=== PATIENT | male | born 1955 | race Caucasian/White ===

== ENCOUNTER 2024-06-30 10:06 | Outpatient (CLI) | payer OTHER, MEDICARE, SELFPAY ==
--- NOTE | 2024-06-30 10:14 | XR_ITS ---
WS: [id number] Exam: XR chest 2V* [id number] Date/Time of Exam: 06/30/2024 10:19 AM Reason For Exam: ACUTE COUGH No priors. Lungs are hyperinflated and clear. Normal cardiomediastinal silhouette. Bony structures are intact. M ild spondylosis of the T-spine. XR/XR chest 2V* [id number] IMPRESSION: 1. Pulmonary hyperinflation. No acute process.
== END 2024-06-30 10:07 | disposition home or self-care (01) ==
LOC: RAD 10:09
PROVIDERS: Visit Provider Family Medicine
DX: R05.1 Acute cough (principal)
CPT/HCPCS: 71046

== ENCOUNTER 2024-07-07 08:46 | Outpatient (CLI) | payer MEDICARE, SELFPAY ==
--- NOTE | 2024-07-07 08:50 | CT_ITS ---
WS: [id number] LDCT LUNG CANCER SCREENING HISTORY: NICOTINE DEPENDENCE,CIGARETTES TECHNIQUE: Axial imaging performed from the apices to 1 cm below the costophrenic angles. Coronal and sagittal reformats are submitted with axial MIP series. All CT scans at [facility] use at least one of these dose optimization techniques: automated exposure control; mA and/or kV adjustment per patient size (includes targeted exams where dose is matched to clinical indication); or iterativ e reconstruction. DLP: 67.88 mGy.cm DIvol: Mean CTDIvol: 1.20 (mGy) COMPARISON: None available. Diagnostic quality: Satisfactory Lungs: Mild pulmonary hyperexpansion from emphysema. Subpleural 3 mm nodule RIGHT lower lobe. No mass . No endobronchial lesions. Heart: Normal size heart with no pericardial effusion.. Other findings: Minimal plaque thoracic aorta. Normal size pulmonary artery. No adrenal mass. Splenic granulomata. Well-circumscribed anterior, superior chest wall mass measures 3.0 x 1.8 cm. Due to its appearance this is probably a sebaceous cyst. There is no adjacent inflammation. CT/CT lung screening [id number] IMPRESSION: LUNG-RADS: 2-Benign Appearance or Behavior FOLLOW UP: 12 Month: Continue annual screening with LDCT OTHER FINDINGS (S MODIFIER): None.
== END 2024-07-07 08:47 | disposition home or self-care (01) ==
LOC: RAD 08:47
PROVIDERS: Visit Provider Nurse Practitioner Family
DX: Z12.2 Encounter for screening for malignant neoplasm of respiratory organs (principal); F17.210 Nicotine dependence, cigarettes, uncomplicated; R91.1 Solitary pulmonary nodule; D73.89 Other diseases of spleen; R93.89 Abnormal findings on diagnostic imaging of other specified body structures
CPT/HCPCS: 71271

== ENCOUNTER → 2024-08-02 13:38 | Outpatient (BNVA) | payer MEDICARE, SELFPAY | PROVIDERS: Referring Provider Nurse Practitioner Family; Visit Provider Surgery | DX: Z12.11 Encounter for screening for malignant neoplasm of colon (principal) | CPT/HCPCS: 99024; 99203; 99204 ==

== ENCOUNTER 2024-08-08 13:40 | Outpatient (CLI) | payer MEDICARE, SELFPAY ==
[2024-08-08 14:05] VITALS: PULSE 67; RESP 18; O2SAT 98
[2024-08-08 14:09] VITALS: PULSE 73
[2024-08-08] MEDS: albuterol 2.5 mg/3 mL Neb INHALATION (14:16)
== END 2024-08-08 13:41 | disposition home or self-care (01) ==
PROVIDERS: Visit Provider Family Medicine
DX: J43.9 Emphysema, unspecified (principal)
CPT/HCPCS: 94060; 94729; J7613

== ENCOUNTER 2024-08-24 09:45 | Day surgery (SDC) | payer MEDICARE, SELFPAY ==
[2024-08-24 09:55] VITALS: BP 141/91; PULSE 71; RESP 16; TEMP 36.4; O2SAT 95; BMI 24.3
[2024-08-24] MEDS: sodium chloride 0.9% 1,000 ML 30 ML IV (10:04)
--- NOTE | 2024-08-24 10:11 | W.PM.OPSUD ---
Surgery/Procedure H&P Update DATE OF PROCEDURE: August 24, 2024 DATE H&P PERFORMED: 08/02/24 H&P UPDATE INFORMATION: I have reviewed H&P completed within last 30 days, I have examined patient prior to procedure, No changes to prior documentation and H&P is in [facility] EMR on date indicated PLANNED PROCEDURE: Operation Date: 08/24/24 11:00 Proposed Procedures p Colonoscopy 46926, G0105, Z12.11(Not Applicable) - Oz Ramey MD
--- NOTE | 2024-08-24 10:23 | ANES.PREANE2 ---
Pre-Anesthetic Assessment Height/Weight: Height 1.78 m Weight 77.111 kg Temp Pulse Resp BP Pulse Ox O2 Del Method 97.5 F L 71 16 141/91 95 Room Air 08/24/24 09:55 08/24/24 09:55 08/24/24 09:55 08/24/24 09:55 08/24/24 09:55 08/24/24 09:55 Operation Date: 08/24/24 11:00 Proposed Procedures p Colonoscopy 29040, G0105, Z12.11(Not Applicable) - Oz Ramey MD Familial anesthetic complications: None Was Beta Carlo taken within 24 hours: N/A Was Clonidine taken within 24 hours: N/A Last intake: Intake Last Liquid Date 08/23/24 Last Liquid Time 23:15 Last Solid Date 08/22/24 Last Solid Time 21:30 Social Tobacco and No alcohol Exam alert, oriented x 3, clear to auscultation bilaterally and regular rate & rhythm Airway Mallampati: Class I Dentition: false CV/HEM Hypertension Anesthetic Plan ASA status: 2 Anesthesia: MAC Other Pertinent Information Patient having increased sinus drainage over past couple of days Medications/Allergies Home Medications Medication Instructions Recorded Confirmed Last Taken Type benazepril 10 mg tablet 10 mg PO DAILY 08/02/24 08/24/24 08/23/24 History Allergies Allergy/AdvReac Type Severity Reaction Status Date / Time No Known Allergies Allergy Verified 08/02/24 13:48 Current Medications Generic Name Dose Route Start Last Admin Trade Name Freq PRN Reason Stop Dose Admin Sodium Chloride 1,000 mls @ 30 mls/hr 08/24/24 10:00 08/24/24 10:04 Sodium Chloride 0.9% IV 30 mls/hr .Q24H ADA Administration PFSH Anesthesia Social History Smoking and tobacco/nicotine status: current every day tobacco/nicotine user Data Anesthesia Cardiac Studies: No Data to Display
[2024-08-24 11:14] VITALS: BP 104/67; PULSE 65; RESP 18; TEMP 36.1; O2SAT 96
[2024-08-24 11:20] VITALS: BP 104/63; PULSE 69; RESP 18; O2SAT 95
[2024-08-24 11:30] VITALS: BP 116/74; PULSE 67; RESP 18; O2SAT 95
--- NOTE | 2024-08-24 11:46 | ANE.PACU2 ---
Inpatient post-anesthesia follow up: Airway intact: Yes Vital signs: Temperature 97.0 F Pulse Rate 67 Respiratory Rate 18 Blood Pressure 116/74 Pulse Oximetry 95 Oxygen Delivery Me thod Room Air Oxygen Flow Rate Fraction of Inspir ed Oxygen Hydration adequate: Yes Nausea and vomiting: No Pain level: 1 Mental status: Baseline
== END 2024-08-24 11:50 | disposition home or self-care (01) ==
PROVIDERS: PCP Family Medicine; Visit Provider Surgery
PROC: 0DJD8ZZ Inspection of Lower Intestinal Tract, Via Natural or Artificial Opening Endoscopic (ICD-10-PCS; CPT 45378; principal; 2024-08-24 11:00)
DX: Z12.11 Encounter for screening for malignant neoplasm of colon (principal); K64.8 Other hemorrhoids; K63.5 Polyp of colon; I10 Essential (primary) hypertension; F17.200 Nicotine dependence, unspecified, uncomplicated
CPT/HCPCS: 45380; 88305; J2704; J7030

== ENCOUNTER → 2024-09-05 13:23 | Outpatient (BNVA) | payer MEDICARE, SELFPAY | PROVIDERS: PCP Family Medicine; Visit Provider Surgery | DX: Z09 Encounter for follow-up examination after completed treatment for conditions other than malignant neoplasm (principal) | CPT/HCPCS: 99213 ==

== ENCOUNTER → 2024-11-15 13:08 | Outpatient (BNVA) | payer MEDICARE, SELFPAY | PROVIDERS: PCP Family Medicine; Visit Provider Surgery | DX: R22.2 Localized swelling, mass and lump, trunk (principal) | CPT/HCPCS: 99214 ==

== ENCOUNTER 2024-11-20 05:50 | Day surgery (SDC) | payer MEDICARE, SELFPAY ==
[2024-11-20] VITALS (10 sets, daily range): BP systolic 118–138; BP diastolic 67–89; PULSE 72–77; RESP 12–18; TEMP 36.1–36.2; O2SAT 94–96; BMI 25.1
--- NOTE | 2024-11-20 05:53 | ECG_ITS ---
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: : 1955 Requested By: Raul Negro Order Number: [id number] Reading MD: FUENTES HI Measurements Intervals [place] Rate: 74 P: 12 TX: 141 QRS: -80 QRSD: 108 T: 100 QT: 399 QTc: 443 Interpretive Statements SINUS RHYTHM PATTERN CONSISTENT WITH PULMONARY DISEASE LEFT ANTERIOR FASCICULAR BLOCK [QRS AXIS <= -45, QR IN I, RS IN II] ST DEVIATION AND MODERATE T-WAVE ABNORMALITY, CONSIDER LATERAL ISCHEMIA [-0.1+ mV T-WAVE IN I/aVL/V5/V6] No previous ECG available for comparison Electronically Signed On 11-20-2024 23:20:44 RN HYPERBARIC by FUENTES HI [email or web address]
--- NOTE | 2024-11-20 06:16 | W.PM.OPSUD ---
Surgery/Procedure H&P Update DATE OF PROCEDURE: November 20, 2024 DATE H&P PERFORMED: 08/02/24 H&P UPDATE INFORMATION: I have reviewed H&P completed within last 30 days, I have examined patient prior to procedure, No changes to prior documentation, Changes to prior documentation as noted here and H&P is in [facility] EMR on date indicated CHANGES TO PREVIOUS DOCUMENTATION: Excision of left upper chest mass PREOP DIAGNOSIS: Mass of the left upper chest PLANNED PROCEDURE: Operation Date: 11/20/24 07:00 Proposed Procedures p EXICISION OF CHEST WALL MASS 01399, R22.2(Not Applicable) - Oz Ramey MD
[2024-11-20] MEDS: sodium chloride 0.9% 1,000 ML 30 ML IV (06:26)
--- NOTE | 2024-11-20 06:28 | ANES.PREANE2 ---
Pre-Anesthetic Assessment Height/Weight: Height 5 ft 10 in Weight 175 lb Temp Pulse Resp BP Pulse Ox O2 Del Method 97.1 F L 77 18 118/76 95 Room Air 11/20/24 06:01 11/20/24 06:01 11/20/24 06:01 11/20/24 06:01 11/20/24 06:01 11/20/24 06:05 Preop Diagnosis: Mass of the left upper chest Operation Date: 11/20/24 07:00 Proposed Procedures p EXICISION OF CHEST WALL MASS 01973, R22.2(Not Applicable) - Oz Ramey MD Was Beta Carlo taken within 24 hours: N/A Was Clonidine taken within 24 hours: N/A Last intake: Intake Last Liquid Date 11/19/24 Last Liquid Time 22:30 Last Solid Date 11/19/24 Last Solid Time 20:00 Social Tobacco and No alcohol Exam alert, oriented x 3, clear to auscultation bilaterally and regular rate & rhythm Airway Submandibular: within normal limits Cervical ROM: within normal limits Mallampati: Class II Dentition: false Anesthetic Plan ASA status: 3 Anesthesia: General Other: No prior issues with anesthesia NPO since yesterday Recently had a upper respiratory infection, completed Z-Harley. Currently asymptomatic History of smoking Hypertension on benazepril Patient received lab work outpatient which was WNL EKG performed today showing sinus rhythm with a LAFB, mild T wave abnormality. Patient is currently asymptomatic, denies any SOB or chest pain METs greater than 4 Plan for general anesthesia(LMA) with local via surgeon Medications/Allergies Home Medications Medication Instructions Recorded Confirmed Last Taken Type benazepril 10 mg tablet 10 mg PO DAILY 08/02/24 11/17/24 11/19/24 History albuterol sulfate 90 mcg/actuation 1 puff inhalation PRN PRN sob 11/15/24 11/17/24 11/19/24 History aerosol inhaler fluticasone propionate 50 1 spray intranasal DAILY 11/15/24 11/17/24 Unknown History mcg/actuation nasal spray,suspension loratadine 10 mg tablet 10 mg PO ONCE 11/15/24 11/17/24 11/19/24 History itagveo-zzpuxlhfdteop-gwjtmztr 250 1 tab PO PRN 11/17/24 11/17/24 Unknown History mg-250 mg-65 mg tablet (Excedrin Migraine) garlic 1 tab PO DAILY 11/17/24 11/17/24 11/19/24 History Allergies Allergy/AdvReac Type Severity Reaction Status Date / Time No Known Allergies Allergy Verified 11/15/24 13:11 Current Medications Generic Name Dose Route Start Last Admin Trade Name Freq PRN Reason Stop Dose Admin Sodium Chloride 1,000 mls @ 30 mls/hr 11/20/24 06:00 11/20/24 06:26 Sodium Chloride 0.9% IV 11/21/24 05:59 30 mls/hr .Q24H ADA Administration PFSH Anesthesia Family History (Updated 11/15/24 @ 13:17 by KT Wick) Father Hypertension Mother Hypertension Social History Smoking and tobacco/nicotine status: current every day tobacco/nicotine user Data Anesthesia Cardiac Studies: No Data to Display
[2024-11-20] MEDS: ceFAZolin 2,000 mg SDV 2000 MG IVP (06:59)
[2024-11-20] MEDS: lidocaine-epi 1% 20 mL INJ 10 ML INJECTION (07:27)
[2024-11-20] MEDS: BUPivacaine 0.25% INJ 10 mL INJECTION (07:28)
--- NOTE | 2024-11-20 07:54 | P.OP_ITS ---
Operative Report Date of procedure: November 20, 2024 Pre-op diagnosis: Left upper chest mass Post-op diagnosis: Same Post-op findings: There was a 4 x 2 x 3 cm left upper chest subcutaneous lesion. 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 After discussion of all recent benefits documented my preop note we decided to proceed with excision of left upper chest mass. Procedure: Patient was brought into the OR, he was placed in the supine position. Moderate analgesia and LMA was placed. The left upper chest was prepped and draped in the usual sterile fashion. A timeout was conducted. Mass was noted on the left upper chest, it was marked. Local anesthesia was infiltrated. I then made a 4 x 1 cm elliptical incision overlying the mass. The incision was deepened until the capsule of the mass was identified. I then carefully circumferentially dissected the lesion from the surrounding tissue using a 15 blade. I was able to completely liberate the mass from the surrounding tissue without perforating the capsule. The mass measured about 4 x 3 x 2 cm, was excised and sent to pathology. Hemostasis was obtained. Additional local anesthesia was infiltrated below the fascial level. The wound was irrigated and hemostasis was verified. The wound was closed in layers using #3-0 Vicryl for the subcutaneous tissue #4 Monocryl for the skin. Dermabond was applied. At the end of the procedure all counts were correct, the patient tolerated well the procedure was transferred to the PACU in stable condition.
--- NOTE | 2024-11-20 09:05 | ANE.PACU2 ---
Inpatient post-anesthesia follow up: Airway intact: Yes Vital signs: Temperature 97 F Pulse Rate 74 Respiratory Rate 18 Blood Pressure 128/81 Pulse Oximetry 96 Oxygen Delivery Me thod Room Air Oxygen Flow Rate 6 Fraction of Inspir ed Oxygen Hydration adequate: Yes Nausea and vomiting: No Pain level: 1 Mental status: Baseline
== END 2024-11-20 09:05 | disposition home or self-care (01) ==
PROVIDERS: PCP Family Medicine; Visit Provider Surgery
PROC: (CPT 11404; principal; 2024-11-20 07:00)
DX: L72.0 Epidermal cyst (principal); I10 Essential (primary) hypertension; F17.200 Nicotine dependence, unspecified, uncomplicated
CPT/HCPCS: 11404; 12032; 88307; 93005; J0690; J2704; J3010; J3490; J7030

== ENCOUNTER 2024-11-28 14:45 | Outpatient (CLI) | payer MEDICARE, SELFPAY ==
--- NOTE | 2024-11-28 14:49 | XR_ITS ---
WS: [id number] Exam: XR chest 2V* [id number] Date/Time of Exam: 11/28/2024 2:57 PM Reason For Exam: ACUTE COUGH Comparison 06/30/2024. The lungs are hyperinflated and clear. Normal cardiomediastinal silhouette. No pleural effusion. Unre markable bony structures. XR/XR chest 2V* [id number] IMPRESSION: 1. Pulmonary hyperinflation that might represent obstructive lung disease. No a cute process.
== END 2024-11-28 14:46 | disposition home or self-care (01) ==
LOC: RAD 14:47
PROVIDERS: PCP Family Medicine; Visit Provider Family Medicine
DX: R05.1 Acute cough (principal); R91.8 Other nonspecific abnormal finding of lung field
CPT/HCPCS: 71046

== ENCOUNTER → 2024-12-06 13:09 | Outpatient (BNVA) | payer MEDICARE, SELFPAY | PROVIDERS: PCP Family Medicine; Visit Provider Surgery | DX: R22.2 Localized swelling, mass and lump, trunk (principal); Z98.890 Other specified postprocedural states | CPT/HCPCS: 99024 ==

== ENCOUNTER 2025-08-07 10:18 | Outpatient (CLI) | payer MEDICARE, SELFPAY ==
--- NOTE | 2025-08-07 10:25 | CT_ITS ---
WS: [id number] LDCT LUNG CANCER SCREENING TECHNIQUE: Noncontrast CT of the chest with coronal and sagittal reformatted images. CLINICAL INFORMATION: NICOTINE DEPENDENCE,CIGARETTES COMPARISON: CT screening 07/07/2024 DLP: 60.51 mGy.cm DIvol: Mean CTDIvol: 1.20 (mGy) All CT scans at [facility] use at least one of these dose optimization techniques: automated exposure control; mA and/or kV adjustment per patient size (includes targeted exams where dose is matched to clinical indication); or iterative reconstruction. FINDINGS: Hyperinflation. Chronic emphysematous change. Stable 3 mm subpleural nodule RIGHT lower lobe. Small RIGHT perifissural nodule. Additional 3 mm subpleural nodule RIGHT lower lobe. 3 mm nodule RIGHT upper lobe. A few scattered micronodules bilaterally. No new suspicious pulmonary parenchymal abnormalities. Aortic calcification. Splenic granulomas. Coronary calcification. No mediastinal or hilar lymphadenopathy. Calcified RIGHT hilar lymph nodes. No axillary lymphadenopathy. Adrenal glands are normal. Normal GE junction. CT/CT lung screening [id number] IMPRESSION: LUNG-RADS: 2-Benign Appearance or Behavior FOLLOW UP: 12 Month: Continue annual screening with LDCT
== END 2025-08-07 10:19 | disposition home or self-care (01) ==
LOC: RAD 10:21
PROVIDERS: PCP Family Medicine; Visit Provider Family Medicine
DX: Z12.2 Encounter for screening for malignant neoplasm of respiratory organs (principal); F17.210 Nicotine dependence, cigarettes, uncomplicated; J98.4 Other disorders of lung; J43.9 Emphysema, unspecified; R91.8 Other nonspecific abnormal finding of lung field; I70.0 Atherosclerosis of aorta; D73.89 Other diseases of spleen; I25.84 Coronary atherosclerosis due to calcified coronary lesion; I89.8 Other specified noninfective disorders of lymphatic vessels and lymph nodes
CPT/HCPCS: 71271